=== PATIENT | female | born 1960 | race Caucasian/White ===

== ENCOUNTER 2018-03-20 05:40 | Inpatient (IN) | payer OTHER ==
--- NOTE | 2018-03-05 16:30 | GHP ---
[f rep st] PREOP HISTORY AND PHYSICAL DATE OF ADMISSION: 03/20/2018 PROBLEM: Right hip arthritis. HISTORY OF PRESENT ILLNESS: The patient is a 57-year-old woman admitted for a right total hip arthro plasty. Her hip has been progressively more painful for the past 2 years. She is having daily pain and night pain. She is using Aleve. She has tried a walker. She has tried physical therapy. She c annot exercise because her hip is so painful. Four years ago she had a stomach sleeve operation and lost 100 pounds. Because her hip hs been so painful, she has not been able to exercise and she has regained the weight. In the past month she has been able to lose 35 pounds. Her BMI is now down to 38.8. PAST MEDICAL HISTORY: Overall she is in good general health. No history of heart disease, stents, D VT, hepatitis, sleep apnea or bleeding problems. CURRENT MEDICATIONS: None. DRUG ALLERGIES: Morphine caused a rash. METAL ALLERGY: None. LATEX ALLERGY: None. SOCIAL HISTORY: The patient is single. She works at [employer]. She smokes 1 pack of cigarettes pe r day and does not drink alcohol. Her daughter will be staying with her for the 1st week after surge ry when she returns home. FAMILY HISTORY: Positive for arthritis and diabetes. PHYSICAL EXAMINATION: GENERAL: Height 5 feet 8 inches. Weight 255 pounds. BMI 38.8. EYES: Conju nctivae and sclerae are clear. Pupils are round and reactive. MOUTH: She has complete upper and lo wer dentures. CHEST: Clear. HEART: Regular rhythm with no murmurs. EXTREMITIES: Pertinent findi ngs limited to her right hip. She has full extension and flexes to 80 degrees. As she flexes the hi p, she develops a 20-degree external rotation contracture and has no further internal or external rot ation. IMAGING: Her films show very severe degenerative arthritis of her right hip. She is [id number]. She is 5-7 mm short on the right. IMPRESSION ON ADMISSION: 1. Right hip severe degenerative arthritis. 2. Obesity. PLAN: She will undergo a right total hip arthroplasty. The surgery has been described to her, rachana tavares the risks, complications, expectations, and recovery time. I have discussed with her the risk o f dislocation, leg length inequality, infection, and sciatic nerve injury. I have also advised her t hat she is quite young for an artificial hip joint and that she may require revision surgery in her l ifetime. I advised her that the smoking history increases her risks. All her questions have been an swered, and she consents to surgery. Copy requested to: Francisco Yi MD /[id number]/MODL
[2018-03-20] MEDS ORDERED: POVIDONE-IODINE 20 ML in SODIUM CL IRRIG SOLUTION 500 ML IRR ONE (06:00)
[2018-03-20] MEDS ORDERED: TRANEXAMIC ACID 2,000 MG in NS 100 ML IV ONE (06:00)
[2018-03-20] MEDS ORDERED: ROPIVACAINE 0.2% 80 MG, EPINEPHrine 0.2 MG, KETOROLAC TROMETHAMINE 30 MG in SYRINGE 0 ML IU ONE (06:00)
[2018-03-20] MEDS ORDERED: TRANEXAMIC ACID 1,000 MG in NS (SYRINGE) 50 ML IV ONE (06:00)
[2018-03-20] MEDS ORDERED: ACETAMINOPHEN 325 MG TAB PO ONE (06:07)
[2018-03-20] MEDS ORDERED: ONDANSETRON 4 MG/2 ML VIAL IVP ONE (06:07)
[2018-03-20] MEDS ORDERED: FAMOTIDINE 20 MG TAB PO ONE (06:07)
[2018-03-20] MEDS ORDERED: GABAPENTIN 300 MG CAP PO ONE (06:07)
[2018-03-20] MEDS ORDERED: ceFAZolin 2 GM/SWFI 2 GM/20 ML SYR IVP ONE ×2 (06:07→06:30)
[2018-03-20] MEDS ORDERED: DEXAMETHASONE 4 MG/ML VIAL IVP ONE (06:07)
[2018-03-20] MEDS ORDERED: LIDOCAINE 1% 2 ML INJ ONE (06:11)
[2018-03-20] MEDS ORDERED: ceFAZolin 1 GM/5 ML SYR ONE (06:32)
[2018-03-20] MEDS ORDERED: MIDAZOLAM 2 MG/2 ML VIAL IVP ONE (06:55)
--- NOTE | 2018-03-20 06:55 | PDANEPAE ---
ANE History of Present Illness 57 yo for flor ANE Past Medical History - Cardiovascular History Hx Hypertension: Yes Hx Arrhythmias: No Hx Chest Pain: No Hx Coronary Artery / Peripheral Vascular Disease: No Hx CHF / Valvular Disease: No Hx Palpitations: No Cardiovascular History Comment: MURMUR. TREATED YRS AGO FOR HTN - Pulmonary History Hx COPD: No Hx Asthma/Reactive Airway Disease: No Hx Recent Upper Respiratory Infection: No Hx Oxygen in Use at Home: No Hx Sleep Apnea: No Sleep Apnea Screening Result - Last Documented: Positive - Neurologic History Hx Cerebrovascular Accident: No Hx Seizures: No Hx Dementia: No - Endocrine History Hx Diabetes: No - Renal History Hx Renal Disorders: Yes Renal History Comment: SOME INCONT - Liver History Hx Hepatic Disorders: No - Neurological & Psychiatric Hx Hx Neurological and Psychiatric Disorders: No - Cancer History Hx Cancer: No - Congenital Disorder History Hx Congenital Disorders: No - GI History Hx Gastrointestinal Disorders: Yes Gastrointestinal History Comment: INTERMITTENT HEARTBURN USES OTC - Other Health History Other Health History: OSTEOARTHRITIS - Chronic Pain History Chronic Pain: Yes (RT HIP) - Surgical History Prior Surgeries: GASTRIC BYPASS. LUMBAR DISCECTOMY L5-S1. JAMA CARPAL TUNNEL. GASTRIC BYPASS 2013. ANE Review of Systems Review of Systems: - Exercise capacity METS (RN): 4 METS ANE Patient History - Allergies Allergies/Adverse Reactions: morphine Allergy (Verified 03/01/18 16:42) Rash - Home Medications Home Medications: Melatonin [Melatonin 3 MG (*)] 3 mg PO HS 02/27/18 [Last Taken 03/19/18] Ranitidine HCl PRN 03/01/18 [Last Taken 03/19/18] - NPO status NPO Status: no food or drink >8 hours NPO Since - Liquids (Date): 03/19/18 NPO Since - Liquids (Time): 21:00 NPO Since - Solids (Date): 03/19/18 NPO Since - Solids (Time): 19:00 - Anes Hx Anes Hx: no prior problems - Smoking Hx Smoking Status: Heavy smoker ANE Labs/Vital Signs - Vital Signs Blood Pressure: 154/76 Heart Rate: 72 Respiratory Rate: 14 O2 Sat (%): 91 Height: 5 ft 8 in Weight: 117.027 kg ANE Physical Exam - Airway Neck exam: FROM Mallampati Score: Class 2 Mouth exam: dentures - Pulmonary Pulmonary: no respiratory distress - Cardiovascular Cardiovascular: regular rate and rhythym - ASA Status ASA Status: II ANE Anesthesia Plan Anesthesia Plan: spinal
[2018-03-20] MEDS ORDERED: LR 1,000 ML IV ONE (06:58)
[2018-03-20] MEDS ORDERED: MIDAZOLAM 2 MG/2 ML VIAL ONE (06:59)
[2018-03-20] MEDS ORDERED: fentaNYL 100 MCG/2 ML INJ ONE (07:04)
--- NOTE | 2018-03-20 07:04 | PDHPUP ---
History & Physical Update H&P update statement: This history and physical update is based on an assessment of the patient which was completed after admission or registration (within 24 hours), but prior to the surgery/procedure. H&P update: H&P reviewed & patient examined
[2018-03-20] MEDS ORDERED: PROPOFOL/EMULSION 500 MG/50 ML BOTTLE IV ONE ×2 (07:05→08:25)
[2018-03-20] MEDS ORDERED: fentaNYL 100 MCG/2 ML INJ IVP PRN (08:58)
[2018-03-20] MEDS ORDERED: NALOXONE HCL 0.4 MG/ML INJ IVP PRN (08:58)
[2018-03-20] MEDS ORDERED: ONDANSETRON 4 MG/2 ML VIAL IVP PRN ×2 (08:58→09:36)
[2018-03-20] MEDS ORDERED: HYDROmorphONE/DILAUDID 2 MG/ML INJ IVP PRN (08:58)
--- NOTE | 2018-03-20 09:12 | POSTOPPROG ---
Post Op Note Date of Operation: 03/20/18 Surgeon: Willis Gonzales [employer] Analyst: Abby Anesthesiologist: Chano Anesthesia: IV Sedation, Spinal Post-op Diagnosis: Right hip severe degenerative arthritis Procedure: Right total hip arthroplasty Inf/Abcess present in the surg proc area at time of surgery?: No EBL: 100-500
[2018-03-20] MEDS ORDERED: LACTULOSE 20 GM/30 ML UDCUP PO PRN (09:36)
[2018-03-20] MEDS ORDERED: DIPHENOXYLATE/ATROPINE LOMOTIL 1 TAB PO PRN (09:36)
[2018-03-20] MEDS ORDERED: MAGNESIUM HYDROXIDE 30 ML UDCUP PO PRN (09:36)
[2018-03-20] MEDS ORDERED: METOCLOPRAMIDE 10 MG/2 ML VIAL IVP PRN (09:36)
[2018-03-20] MEDS ORDERED: BISACODYL 10 MG SUPP PR PRN (09:36)
[2018-03-20] MEDS ORDERED: TEMAZEPAM 15 MG CAP PO PRN (09:36)
[2018-03-20] MEDS ORDERED: PROMETHAZINE HCL 25 MG/ML INJ IVP PRN (09:36)
[2018-03-20] MEDS ORDERED: traMADol 50 MG TAB PO PRN (09:36)
[2018-03-20] MEDS ORDERED: POLYETHYLENE GLYCOL 3350 17 GM PKT PO PRN (09:36)
[2018-03-20] MEDS ORDERED: ONDANSETRON DISINTEGRATING 4 MG TAB PO PRN (09:36)
[2018-03-20] MEDS ORDERED: NS 500 ML IV PRN (09:36)
[2018-03-20] MEDS ORDERED: PROMETHAZINE HCL 25 MG SUPPR PR PRN (09:36)
[2018-03-20] MEDS ORDERED: diphenhydrAMINE 25 MG CAP PO PRN (09:36)
--- NOTE | 2018-03-20 09:52 | GOP ---
[f rep st] OPERATIVE REPORT DATE OF OPERATION: 03/20/2018 SURGEON: Willis Gonzales MD CHEMICAL PROCESS EQUIPMENT OPERATOR: Kenn Baker CFA. Rell Brown, PAC. ANESTHESIA: A combination of Marcaine, spinal, and IV sedation by Dr. Clark. PREOPERATIVE DIAGNOSIS: Right hip severe degenerative arthritis. POSTOPERATIVE DIAGNOSIS: Right hip severe degenerative arthritis. PROCEDURE PERFORMED: A right total hip arthroplasty. FINDINGS: DESCRIPTION OF PROCEDURE: The patient was given 2 g of IV Ancef preoperatively within 60 minutes of surgery. She also received IV tranexamic acid, 2000 mg preoperatively. She was placed on the operat ing room table and given spinal anesthesia with Marcaine by Dr. Clark. She was then placed supine and given IV sedation. A De La Rosa catheter was not used. She wore RAGHAVENDRA stockings and SCD on the nonope rative leg. She was rolled to the left lateral decubitus position. The position was secured with th e pegboard table attachment. An axillary roll was used, and all pressure points were carefully padde d. I was careful to try and lock her pelvis in a rigid vertical position. Her height is 5 feet 8 in ches. Weight 255 pounds. BMI 38.8. Because of her size, positioning was difficult. Her perineum w as isolated with plastic adhesive drapes. Her right hip and right lower extremity were prepped with ChloraPrep. They were draped free using sterile sheets, stockinette, and Ioban plastic drapes. The [employer] time-out was performed to verify the correct surgical side and site and the correct patient identity. The [place] time-out was also performed. I made a 7-inch straight oblique posterolateral hip skin incision. The subcutaneous tissues were sha rply divided, and hemostasis was obtained using electrocautery. She had approximately a 3-inch thick layer of subcutaneous fat. Her fascia kevin was identified and split proximally along the axis of it s fibers. I then curved posteriorly and proximally, and split the fascia of the gluteus thelma and bluntly split the muscle fibers in line with their orientation. The [place]arnley self-retaining retracto r was inserted. Her sciatic nerve was located, partially exposed, and protected throughout the proce dure. The external rotators and the posterior hip capsule were divided as separate layers at the bas e of the femoral neck, tagged, and reflected posteriorly. A smooth 8-inch Steinmann pin was inserted vertically into the ilium, superior to the acetabulum. An 8-inch drill bit was inserted vertically into the greater trochanter and parallel to the first pin. The distance between the two was measured for leg length reference. Her femoral head was dislocated posteriorly. Severe degenerative changes were present on the head. Her femoral neck was osteotomized at the appropriate level and inclinatio n. I was careful to preserve all the posterior capsule and most of the anterior capsule. The remnant of her damaged labrum was excised. I prepared the femur first. This allowed me to mangle tender cloth the amount of natural femoral neck anteversion. This, in turn, allowed me to later determine the correct amount of cup anteversion. She had 15-17 degrees of natural femoral neck anteversion. Her canal was opened laterally with a box chisel. I us ed the starter reamer on power and then hand broached sequentially up to size 6. I used a [place] Ac colade II, size 6 broach as a trial stem. I was careful to lateralize adequately. Appropriate retractors were inserted to expose the acetabulum. The acetabulum was reamed sequentiall y up to size 53 mm. I selected a 54 mm [place] Tritanium solid back cluster hole hemispherical shell . This was tapped securely into place in the proper degree of inclination anteversion. I used the t ransverse acetabular ligament and other acetabular bony landmarks to help me properly orient the cup. I did not think supplemental screw fixation was necessary. I inserted a screw-in metal dome hole p lug. Some small anterior osteophytes were removed with an osteotome and rongeur. I performed a series of trial reductions to determine length and stability. I took an intraoperative cross-table AP pelvis x-ray. This confirmed proper position and sizing of the acetabular component. This femoral component was properly positioned. I recognized that I was lengthening her about 2 mm . However, I thought this gave me superior stability and was acceptable. The 0 degree [place] X3 hi ghly cross-linked polyethylene liner was inserted and tapped securely into place. I selected the PolyPid yker Accolade II stem in size 6 with standard offset. This was inserted press-fit and was very tight . I did 1 final trial reduction and confirmed that the -2.5 mm neck length with the 36 mm head was t he proper combination. The Daniel Biolox Delta ceramic head with an outside diameter of 36 mm and a neck length of -2.5 mm was tapped securely onto the clean trunnion. The acetabulum was irrigated, c leaned, and the hip was reduced 1 final time. She had excellent anterior and posterior stability and appropriate length. She was a couple of millimeters short preoperatively. 40 mL of the joint anesthetic cocktail were injected into the capsule, the deep musculature, and the subcutaneous tissues along the skin edges. The joint was thoroughly irrigated 1 final time with the dilute Betadine solution. Her sciatic nerve was reinspected and looked unharmed. The external rotators and the posterior hip capsule were repaired in separate layers with #2 FiberWir e sutures through drill holes in the greater trochanter. This provided a strong posterior capsular a nd external rotator repair. The fascia kevin was closed first with two #2 [id number] FiberWire s utures, followed by a running #2 barbed Ethicon Stratafix PDO suture. The subcutaneous tissues were closed with a running 0 barbed Ethicon Stratafix Monoderm suture. The skin was closed with a running 3-0 barbed Ethicon Stratafix Monoderm subcuticular suture. The skin edges were reapproximated and s ealed with Dermabond glue. The wound was covered with a large piece of water-proof Mepilex surgical dressing. The Mepilex sacral dressing was also applied. A long-leg RAGHAVENDRA stocking and SCD were applied to her right lower extremity. She wore a stocking and S CD on the opposite leg during the procedure. An abduction pillow was placed between her knees. She was awakened from anesthesia and rolled to the supine position on her gurney. She was taken to PACU in satisfactory condition. There were no recognized intraoperative complications. The estimated blood loss was about 300 mL. The sponge and needle count were correct on 2 occasions. I used a [place] Tritanium hemispherical solid-backed acetabular shell with an outside diameter of 54 mm. The liner was a Daniel X3 0-degree highly cross-linked liner with an inside diameter of 36 mm. The femoral component was a press-fit Daniel standard offset Accolade II stem in a size 6. The fe moral head was a [place] Biolox Delta ceramic head with a -2.5 mm neck length and a 36 mm outside gavin meter. Kenn Baker and Vasquez Brown acted as surgical assistants. Their assistance was a medical necess ity for safe completion of the procedure. /[id number]/MODL
--- NOTE | 2018-03-20 11:15 | PDMN ---
Medical Necessity Medical necessity: [facility] [place] [facility] [place] S532 [place]- A-2 days [facility] INPT only R SUKHJINDER
[2018-03-20] MEDS: KETOROLAC 15 MG/1 ML SDV IVP SCH ×3 (11:52→23:23)
[2018-03-20] MEDS: ACETAMINOPHEN 325 MG TAB PO SCH ×3 (11:52→23:22)
[2018-03-20] MEDS: oxyCODONE IR 5 MG TAB PO PRN ×4 (12:10→23:23)
--- NOTE | 2018-03-20 13:51 | POSTANESTH ---
Post Anesthetic Evaluation Cardiovascular Status: Normal, Stable Respiratory Status: Normal, Stable Level of Consciousness/Mental Status: Can Participate in Eval Pain Control: Adequate, Prn Tx Ordered Nausea/Vomiting Control: Adequate, Prn Tx Ordered Complications Possibly Related to Anesthesia: None Noted
[2018-03-20] MEDS ORDERED: ceFAZolin 2 GM/DEXTROSE 100 ML IV SCH (14:00)
[2018-03-20] MEDS: LR 1,000 ML IV SCH ×2 (14:57→23:23)
[2018-03-20] MEDS: ceFAZolin 2 GM in D5W 100 ML IV SCH ×2 (14:57→23:26)
[2018-03-20] MEDS: CYCLOBENZAPRINE 10 MG TAB PO PRN (18:45)
[2018-03-20] MEDS: ASPIRIN 325 MG TAB PO SCH (21:26)
[2018-03-20] MEDS: FAMOTIDINE 20 MG TAB PO SCH (21:27)
[2018-03-20] MEDS: SENNOSIDES/DOCUSATE SODIUM TAB PO SCH (21:28)
[2018-03-21] MEDS: CYCLOBENZAPRINE 10 MG TAB PO PRN ×2 (02:59→10:33)
[2018-03-21] MEDS: oxyCODONE IR 5 MG TAB PO PRN ×2 (06:07→09:37)
[2018-03-21] MEDS: ACETAMINOPHEN 325 MG TAB PO SCH (06:08)
[2018-03-21] MEDS: KETOROLAC 15 MG/1 ML SDV IVP SCH (06:09)
[2018-03-21 07:48] VITALS: BP 132/65
[2018-03-21] MEDS ORDERED: FERROUS SULFATE 140 MG TAB.ER PO SCH (09:00)
--- NOTE | 2018-03-21 09:34 | SOAPPROG ---
SOAP Progress Note Assessment/Plan: Assessment: Afebrile. Up and walking. Mild pain. Dsg is dry. Sciatic nerve intact. H/H is good. Films look good. Has been cleared by PT. Plan: DC today. 03/21/18 09:33 Objective: Vital Signs Temp Pulse Resp BP Pulse Ox 36.9 C 58 L 16 132/65 H 94 03/21/18 07:46 03/21/18 07:46 03/21/18 07:46 03/21/18 07:46 03/21/18 07:46 Laboratory Results 03/21/18 04:28 03/20/18 03/21/18 03/22/18 05:59 05:59 05:59 Intake Total 3910 Output Total 950 Balance 2960 ICD10 Worksheet Patient Problems: Problems Problem Status Onset Osteoarthritis of right hip Acute
[2018-03-21] MEDS: ASPIRIN 325 MG TAB PO SCH (09:37)
[2018-03-21] MEDS: FAMOTIDINE 20 MG TAB PO SCH (09:37)
[2018-03-21] MEDS: SENNOSIDES/DOCUSATE SODIUM TAB PO SCH (10:05)
--- NOTE | 2018-03-21 10:08 | GDS ---
[f rep st] DISCHARGE SUMMARY ADMISSION DIAGNOSIS: Right hip arthritis. DISCHARGE DIAGNOSIS: Right hip arthritis. OPERATION PERFORMED: 03/20/2018, a right total hip arthroplasty, ceramic femoral head on highly cros s-linked polyethylene cup liner. POSTOPERATIVE COMPLICATIONS: None. CONDITION ON DISCHARGE: Improved. DESCRIPTION OF HOSPITAL COURSE: The patient was admitted to the hospital the morning of surgery. He r admission white blood cell count was 10,580. H and H 15.9 and 46.7. The same day, under combinati on of spinal anesthesia with Marcaine and IV sedation, she underwent a right total hip arthroplasty. Postoperatively, she was treated with multimodal DVT prophylaxis. On the first postoperative day, h er hemoglobin and hematocrit were 12.1 and 37.1. She did not require transfused blood. She was seen by Physical Therapy and made excellent progress with ambulation and stairs. By the time of discharg e, she was afebrile, her wound was dry, and she was independent walking with a walker, 50% weightbear ing on the right. DISPOSITION: The patient discharged to her home. She will go to outpatient physical therapy next we ek. 50% weightbearing for 3 weeks. RAGHAVENDRA stockings for 1 week. Continue aspirin 325 mg p.o. daily fo r 21 days. She has prescriptions for oxycodone, tramadol and Celebrex for pain. I will see her back in the office on April 16, 2018. If there are any problems, she is to call me at the office. /[id number]/MODL
--- NOTE | 2018-03-21 10:19 | ASMTCMCOM ---
CM Note CM Note Notes: Pt s/p R SUKHJINDER. Pt medically stable for d/c, no CM d/c needs identified. Pt to follow up with outpatient PT. PT rec home/outpatient. Date Signed: 03/21/2018 10:18 AM Electronically Signed By:HAMIDA Perez
== END 2018-03-21 10:38 | disposition home or self-care (01) | DRG 470 ==
LOC: F3N 05:40
PROVIDERS: ADMIT Orthopaedic Surgery; ATTEND Orthopaedic Surgery
PROC: 0SR904Z Replacement of Right Hip Joint with Ceramic on Polyethylene Synthetic Substitute, Open Approach (ICD-10-PCS; principal; 2018-03-20 07:15)
DX: M16.11 Unilateral primary osteoarthritis, right hip (principal); F17.210 Nicotine dependence, cigarettes, uncomplicated; I10 Essential (primary) hypertension; Z98.84 Bariatric surgery status
CPT/HCPCS: 97110-GP; 97116-GP; 97161-GP; 97166-GO; 97530-GP; J0171; J0690; J1100; J1885; J2250; J2704; J2795; J3010